=== PATIENT | female | born 1990 | race Caucasian/White ===

== ENCOUNTER 2017-07-27 01:38 | Inpatient (IN) | payer OTHER, BC ==
[2017-07-27] MEDS ORDERED: Carboprost Tromethamine 250 MCG/1 ML Amp IM PRN (02:23)
[2017-07-27] MEDS ORDERED: Misoprostol 400 MCG (4 X 100 MCG TAB) RECTAL PRN (02:23)
[2017-07-27] MEDS ORDERED: Ondansetron 4 MG/2 ML SDV IV PRN (02:23)
[2017-07-27] MEDS ORDERED: Methylergonovine 0.2 MG/1 ML Amp IM PRN (02:23)
[2017-07-27] MEDS ORDERED: Lactated Ringers 500 ML IV ONE (02:23)
[2017-07-27] MEDS ORDERED: Sodium Chloride 0.9% 10 ML Syringe FLUSH PRN (02:23)
[2017-07-27] MEDS ORDERED: Lidocaine 1% 30 ML SDV INJECT PRN (02:23)
[2017-07-27] MEDS ORDERED: Oxytocin/Normal Saline 30 UNIT/500 ML BAG IV SCH (02:45)
[2017-07-27] MEDS: Lactated Ringers 1,000 ML IV SCH ×2 (03:58→07:15)
[2017-07-27] MEDS ORDERED: fentaNYL 100 MCG/2 ML SDV IVPUSH SCH (04:48)
[2017-07-27] MEDS: fentaNYL 100 MCG/2 ML SDV IVPUSH PRN ×2 (05:10→06:26)
[2017-07-27] MEDS ORDERED: Benzocaine/Menthol 20%-0.5% Spray 56 GM Canister TOP PRN (07:50)
[2017-07-27] MEDS ORDERED: Simethicone 80 MG Tab.Chew PO PRN (07:50)
[2017-07-27] MEDS ORDERED: Oxytocin 10 Units/1 ML SDV IM PRN (07:50)
[2017-07-27] MEDS ORDERED: Zolpidem 5 MG Tab PO PRN (07:50)
--- NOTE | 2017-07-27 08:03 | PCM.DEL ---
Vacuum Extractor Progress Note - Alternative Labor Strategies Considered Alternative Labor Strategies Considered:: Reports: Yes Strategies Considered:: Reports: Contraction Intensity Adequate, Position Changes Used to Facilitate Rotation & Descent, Empty Bladder, Rest Indications Considered:: Reports: Yes Indications:: Reports: Suspicion of Immediate or Potential Compromise Time Out:: Reports: Yes - Patient Prepared Patient Prepared:: Reports: Yes Informed Consent:: Reports: Yes, Verbal Risks: Reports: Yes Risks Include:: Reports: Laceration, Shoulder Dystocia, Maternal Injury Anesthesia/Analgesia Adequate:: Reports: Yes - Probability of Success High Probability of Success:: Reports: Yes Weight Estimated:: Reports: AGA, SGA Patient Diabetic:: Reports: No Pelvis Adequate:: Reports: Yes Asynclitic:: Reports: No Station:: vtx seen splitting the labia - Application Time Maximum Application Time & Number of Pop-Offs Predetermined:: Reports: Yes Maximum Pressure Maintained in Green Zone (cm Hg):: 0 (see nurses notes) Total Application Time (min): *max=20min: 0 (see nurses notes) Number of Times Cup Disengaged:: 0 Type of Vacuum Used:: Reports: Low profile Vacuum Extraction: Successful Comments:: see dictated delivery note for details. - Exit Strategy Exit strategy available:: Reports: Yes and resuscitation teams readily available:: Reports: Yes - Patient Data Vitals - Most Recent: Last Vital Signs Temp 96.9 F 07/27/17 01:46 Pulse 63 07/27/17 01:48 Resp 16 07/27/17 01:48 BP 130/82 07/27/17 01:48 Pulse Ox 97 07/27/17 01:48 Weight - Most Recent: 80.739 kg Lab Results Last 24 Hours: Laboratory Results - last 24 hr 07/27/17 Range/Units 02:12 WBC 9.6 (5.0-10.0) 10^3/uL RBC 3.81 L (4.2-5.4) 10^6/uL Hgb 11.0 L (12.0-16.0) g/dL Hct 34.6 L (37.0-47.0) % MCV 90.8 (80-100) fL MCH 28.9 (27.0-34.0) pg MCHC 31.8 L (33.0-35.0) g/dL Plt Count 223 (150-450) 10^3/uL Med Orders - Current: Current Medications Acetaminophen (Tylenol) 650 mg PO Q4H PRN PRN Reason: Pain (Mild 1-3) and fever Benzocaine/Menthol (Dermoplast Pain Relief Celina) 0 gm TOP Q4H PRN PRN Reason: Perineal comfort measures Carboprost Tromethamine (Hemabate Ds) 250 mcg IM ASDIRECTED PRN PRN Reason: HEMORRHAGE Docusate Sodium (Colace) 100 mg PO BID PRN PRN Reason: Constipation Fentanyl (Sublimaze) 50 mcg IVPUSH Q1H PRN PRN Reason: Pain Last Admin: 07/27/17 06:26 Dose: 50 mcg Lactated Ringer's (Ringers, Lactated) 1,000 mls @ 125 mls/hr IV ASDIRECTED SUZIE Last Admin: 07/27/17 07:15 Dose: 125 mls/hr Oxytocin/Sodium Chloride (Pitocin In Ns 30 Unit/500 Ml) 30 unit in 500 mls @ 2 mls/hr IV TITRATE SUZIE; 2 MUNITS/MIN PRN Reason: Protocol Last Titration: 07/27/17 07:51 Dose: 250 munits/min, 250 mls/hr Ibuprofen (Motrin) 800 mg PO Q8H PRN PRN Reason: Mild Pain or Fever Lidocaine HCl (Xylocaine-Mpf 1%) 10 ml INJECT ASDIRECTED PRN PRN Reason: Perineal Repair Last Admin: 07/27/17 07:35 Dose: 10 ml Methylergonovine Maleate (Methergine) 0.2 mg IM ASDIRECTED PRN PRN Reason: Hemorrhage Misoprostol (Cytotec) 800 mcg RECTAL ASDIRECTED PRN PRN Reason: Hemorrhage Ondansetron HCl (Zofran) 4 mg IV Q4H PRN PRN Reason: Nausea/Vomiting Last Admin: 07/27/17 07:14 Dose: 4 mg Oxytocin (Pitocin) 10 unit IM ONETIME PRN PRN Reason: Bleeding Prenat Multivit/[place]/Iron/Folic Ac ( Plus Iron) 1 each PO DAILY SUZIE Simethicone (Simethicone) 80 mg PO Q4H PRN PRN Reason: Gas Sodium Chloride (Saline Flush) 10 ml FLUSH ASDIRECTED PRN PRN Reason: Keep Vein Open Zolpidem Tartrate (Ambien) 5 mg PO BEDTIME PRN PRN Reason: Insomnia Discontinued Medications Fentanyl (Sublimaze) 50 mcg IVPUSH Q1H SUZIE Lactated Ringer's (Ringers, Lactated) 500 mls @ 500 mls/hr IV .BOLUS ONE Stop: 07/27/17 03:22 Sodium Bicarbonate (Sodium Bicarbonate 4.2%) Confirm Administered Dose 5 meq .ROUTE .STK-MED ONE Stop: 07/27/17 07:17 Sufentanil Citrate (Sufenta) Confirm Administered Dose 50 mcg .ROUTE .STK-MED ONE Stop: 07/27/17 07:17 - Problem List Review Problem List Initiated/Reviewed/Updated: No - My Orders Last 24 Hours: My Active Orders 07/27/17 02:23 Patient Status [ADT] Routine Communication Order [RC] ASDIRECTED Notify Provider Vital Signs OB [RC] ASDIRECTED Notify Provider [RC] PRN Up ad Janice [RC] ASDIRECTED Vital Signs [RC] PER UNIT ROUTINE Acetaminophen [Tylenol] 650 mg PO Q4H PRN Carboprost Tromethamine [Hemabate DS] 250 mcg IM ASDIRECTED PRN Lidocaine 1% [Xylocaine-MPF 1%] 10 ml INJECT ASDIRECTED PRN Methylergonovine [Methergine] 0.2 mg IM ASDIRECTED PRN Misoprostol [Cytotec] 800 mcg RECTAL ASDIRECTED PRN Ondansetron [Zofran] 4 mg IV Q4H PRN Sodium Chloride 0.9% [Saline Flush] 10 ml FLUSH ASDIRECTED PRN Saline Lock Insert [OM.PC] Routine Resuscitation Status Routine 07/27/17 02:29 Pump Management, Intrathecal [RC] ASDIRECTED 07/27/17 02:30 Lactated Ringers [Ringers, Lactated] 1,000 ml IV ASDIRECTED 07/27/17 02:45 Oxytocin/Normal Saline [Pitocin in NS 30 UNIT/500 ML] 30 unit in 500 ml IV TITRATE 07/27/17 05:00 fentaNYL [Sublimaze] 50 mcg IVPUSH Q1H PRN 07/27/17 07:50 Consult to Supervisor [employer] [CONS] Routine Benzocaine/Menthol [Dermoplast Pain Relief Celina] See Dose Instructions TOP Q4H PRN Docusate Sodium [Colace] 100 mg PO BID PRN Ibuprofen [Motrin] 800 mg PO Q8H PRN Oxytocin [Pitocin] 10 unit IM ONETIME PRN Simethicone 80 mg PO Q4H PRN Zolpidem [Ambien] 5 mg PO BEDTIME PRN 07/27/17 07:51 Assess Lochia [WOMSER] Per Unit Routine Assess Uterine Involution [WOMSER] Per Unit Routine Breast Pump [WOMSER] Per Unit Routine Ice Therapy [OM.PC] Per Unit Routine Perineal Care [OM.PC] Per Unit Routine Saline Lock Insert [OM.PC] Urgent Sitz Bath [OM.PC] Per Unit Routine 07/27/17 07:53 Patient Status Manage Transfer [TRANSFER] Routine 07/27/17 09:00 Vit with Ca/FA/Iron [ Plus Iron] 1 each PO DAILY 07/27/17 Breakfast Regular Diet [DIET] 07/27/17 Lunch Clear Liquid Diet [DIET] 07/28/17 06:00 CBC W/O DIFF,HEMOGRAM [HEME] Routine
[2017-07-27] MEDS: Ibuprofen 800 MG Tab PO PRN ×2 (08:18→17:13)
[2017-07-27] MEDS: Docusate Sodium 100 MG Cap PO PRN ×2 (08:18→21:50)
[2017-07-27] MEDS: Prenatal Multivitamin with Calcium/Folic Acid/Iron Tab PO SCH (09:58)
[2017-07-27] MEDS: Acetaminophen 325 MG Tab PO PRN ×2 (13:52→21:50)
[2017-07-28] MEDS: Ibuprofen 800 MG Tab PO PRN ×3 (02:54→17:26)
[2017-07-28] MEDS: Docusate Sodium 100 MG Cap PO PRN ×2 (10:09→19:57)
[2017-07-28] MEDS: Acetaminophen 325 MG Tab PO PRN ×3 (10:09→19:57)
[2017-07-28] MEDS: Prenatal Multivitamin with Calcium/Folic Acid/Iron Tab PO SCH (12:01)
[2017-07-28] MEDS: Acetaminophen/oxyCODONE 325-5 MG Tab PO PRN (22:15)
[2017-07-29] MEDS: Ibuprofen 800 MG Tab PO PRN (03:57)
[2017-07-29] MEDS: Acetaminophen/oxyCODONE 325-5 MG Tab PO PRN (08:25)
[2017-07-29] MEDS: Docusate Sodium 100 MG Cap PO PRN (08:26)
--- NOTE | 2017-07-29 08:59 | HP ---
PATIENT IDENTIFICATION: Monet Durant is a 27-year-old G1, P0, intrauterine at 37-5/7 weeks by 6-2/7 weeks' ultrasound, who presents with vaginal leaking. HISTORY OF PRESENT ILLNESS: The patient states vaginal leaking started approximately 1:00 a.m. on date of admission, occurred after she got up to use the bathroom, and then thereafter noticed clear vaginal fluid was leaking, severe enough that it was soaking through clothing, and making puddles on the floor. Associated with this has been some mild contractions felt in the lower abdomen, coming on every 2 to 3 minutes. Sometimes, they are felt in the upper abdomen as well. With this in context, her course has been remarkable for being GBS negative, being Rh negative, getting RhoGAM as appropriate, and history of idiopathic intracranial hypertension, and she is okay to receive spinal anesthesia. OBSTETRICAL HISTORY: Primip. Records were called for, reviewed as below, and supplemented by the patient's history. ANTEPARTUM LABS: ABO blood type A negative. Negative antibody. Rubella immune. RPR nonreactive. Negative hepatitis B surface antigen. Negative hep C, HIV, GC, and Chlamydia. Wet prep within normal limits. One-hour GTT was 107. Hemoglobin being 14.1 and platelets at 280. GBS was negative in the third trimester. ALLERGIES: Seasonal allergies. PAST MEDICAL/PAST SURGICAL HISTORY: Remarkable for migraine headaches, urinary frequency, anxiety, depression, microscopic hematuria, genital warts, obesity, and had a cystoscopy in August 2015. FAMILY HISTORY: ADHD in a brother. Diabetes in maternal grandmother as well as glaucoma in this grandmother. High blood pressure in father who also had diverticulitis and Forestier disease. Mother has obesity. Brother has epilepsy, and mother has thyroid disease and sleep apnea as well. Negative family history of cancer, heart disease, breast cancer, other issues, bleeding problems, anesthesia problems. SOCIAL HISTORY: since October 2015. 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 Raising a 3- year-old stepson and 8-year-old stepdaughter, who are active. She denies any alcohol, tobacco, or drug use. Sexually active with a male partner, who presents with her today. REVIEW OF SYSTEMS: Otherwise reviewed and felt to be noncontributory. OBJECTIVE: Vital Signs: Blood pressure 130/82, heart rate 63. The patient feels afebrile. Appearance: Female, appears stated age, acting appropriate for age, nontoxic appearance. HEENT: Head is atraumatic. EOMs intact. PERRLA. No scleral icterus. No obvious otorrhea or rhinorrhea. Mucous membranes are moist. Neck: No obvious tenderness. Lungs: Clear to auscultation bilaterally. No increased work of breathing. Heart: S1, S2. Regular rate and rhythm. Abdomen: Gravid, Geo's indeterminate, nontender, nondistended. Bowel sounds positive. No organomegaly, pulsatile masses, or obvious hernias. No rebound, rigidity, or guarding. Monitors applied. : Per nurse reveals massive amount of clear vaginal fluid that is leaking with a cervical exam revealing her to be 3+ cm, 60% effaced, 0 to -1 station, vertex suspected. Extremities: No peripheral edema. Deep tendon reflexes 2 to 3/4 bilaterally and symmetric in lower extremities. Psychiatric: Mood and affect are congruent. Judgment and insight are intact. Skin: Without any cyanosis, clubbing, or jaundice. LABS: CBC pending. NST is found to be reactive and reassuring. Tocometer reveals contractions every 2 to 4 minutes. ASSESSMENT/PLAN: 1. Intrauterine at 37 and 5/7 weeks by 6-2/7 weeks' ultrasound. 2. Spontaneous rupture of membranes. 3. Group B Streptococcus negative. 4. Rh negative. Received RhoGAM earlier appropriately. 5. History of idiopathic intracranial hypertension with documentation stating physician did not see any contraindication to spinal. 6. 1, para 0. PLAN: The patient will be admitted. Follow clinically and closely. She wishes to get in the tub. We will evaluate her thereafter. If she does not have adequate contractions and cervical change, we will consider Pitocin augmentation and follow clinically and closely. The patient understands and agrees with the above treatment and plan. [facility] /[id number]
--- NOTE | 2017-07-29 10:02 | PN ---
DATE: 07/28/2017 Day #1 SUBJECTIVE: The patient is tolerating p.o., ambulating, urinating, passing flatus. PHYSICAL EXAMINATION: Vital Signs: Last set of vitals updated and listed in the chart. Temperature 97.8, heart rate 76, blood pressure 114/72, respiratory rate 16. Lungs: Clear to auscultation. Heart: S1 and S2. Regular rate and rhythm. Pelvic: Firm uterus -1 below umbilicus. Extremities: Trace pedal edema. No calf pain. LABORATORY DATA: Labs reveal a white cell count of 10.5, hemoglobin 10.2, platelets 205. ASSESSMENT: 1. day #1, status post vacuum assisted vaginal delivery with first- degree perineal laceration-repaired. We will continue to follow clinically and closely. 2. Rh negative status. Cord blood was done. Baby's cord blood type was negative as well. Will need RhoGAM. PLAN: Follow closely. Possible discharge tomorrow. The patient understands and agrees with the above treatment plan. [facility] /[id number]
--- NOTE | 2017-07-29 11:05 | DEL ---
DATE: 07/27/2017 PREOPERATIVE DIAGNOSES: 1. Intrauterine at 37 and 5/7 weeks by 6 and 2/7 week ultrasound. 2. Premature rupture membranes approximately 1 a.m., on date of admission, requiring Pitocin augmentation. 3. Group B Streptococcus negative. 4. Rh negative. 5. History of idiopathic intracranial hypertension. 6. Episode of bradycardia/decelerations in the second stage of labor. 7. G1, P0. POSTOPERATIVE DIAGNOSES: 1. Intrauterine at 37 and 5/7 weeks by 6 and 2/7 week ultrasound- delivered. 2. Premature rupture membranes approximately 1 a.m., on date of admission, requiring Pitocin augmentation. 3. Group B Streptococcus negative. 4. Rh negative. 5. History of idiopathic intracranial hypertension. 6. Episode of bradycardia/decelerations in the second stage of labor. 7. G1, P0. 8. First-degree perineal laceration, repaired. 9. Bilateral periurethral abrasions, right worse than left, nonbleeding, non- repaired after discussion with the patient. PROCEDURE PERFORMED: NST, Pitocin augmentation, subsequently vacuum-assisted vaginal delivery with first-degree perineal laceration,repaired. ANESTHESIA/ANALGESIA: The patient did receive 2 doses of fentanyl during her first stage of labor. ESTIMATED BLOOD LOSS: 200 mL. FINDINGS: Female, scores 8 and 9, weighing 5 pounds 12 ounces (2660 g). SUMMARY OF EVENTS: The patient is a 27-year-old, G1, P0, intrauterine at 37 and 5/7 weeks' by 6 and 2/7 weeks' ultrasound admitted with vaginal leaking. Subsequently, diagnosed with premature rupture membranes requiring Pitocin augmentation. She underwent this and then had fentanyl 2 doses in the first stage of labor. She rapidly progressed from approximately 4 cm to complete within less than 2 hours. I was called to the room, donned sterile gown and gloves. The patient started pushing with her contractions. There was noted to be some bradycardia with decelerations during and after the contractions that persisted or worsened. Oxygen was started as well as IV fluids and these persisted. Subsequently, discussion ensued in regard to Kiwi vacuum-assisted vaginal delivery. I discussed with her and her male partner risks, benefits, alternatives, complications of this and they understood and agreed and wished to proceed. Verbal consent was obtained. Prior to using the vacuum, rubber tip catheter was introduced into the bladder under sterile conditions and clear urine was drained and was subsequently removed. Next episode of pushing, vertex was seen splitting the labia, low-profile kiwi vacuum was then applied and with the next 2 contractions with patient pushing, kiwi vacuum was pumped up to the green while patient was pushing and with gentle pulling pressure, vertex was delivered in PAUL presentation. Vacuum was disengaged and removed. Nuchal cord x1 was reduced bluntly with delivery and then subsequently anterior and posterior shoulder then delivered with minimal difficulty with right hand by left cheek. Rest of the delivered without difficulty. Mouth and nares were suctioned. Cord was doubly clamped and cut, and was brought over to team. Then, approximately 10 mL cord blood was obtained for labs. Placenta then delivered with gentle cord traction and fundal massage. Perineum, vagina, and perirectal areas were examined and noted to have a first-degree perineal laceration that was anesthetized and repaired in the usual fashion using 3-0 Vicryl, as well as bilateral periurethral abrasions, right worse than left, nonbleeding, non-repaired after discussion with the patient. Mother and infant are currently stable at the time of my dictation. [facility] /[id number]
--- NOTE | 2017-07-29 11:20 | OBOUT ---
DATE: 07/27/2017 DATE AND TIME OF NST: Date: 07/27/2017. Time: 2:19 to 2:36. REASON FOR NST: 1. Intrauterine at 37 and 5/7 weeks by 6 and 2/7-week ultrasound. 2. Spontaneous rupture of membranes. 3. GBS negative. 4. Rh negative. 5. History of idiopathic intracranial hypertension. 6. G1, P0. NST INTERPRETATION: During this time period, heart tone baseline is approximately 130, and there are at least two 15 x 15 beat per minute accelerations, making this strip reactive. It is also noted to be reassuring. Tocometer reveals potential of 5 contractions, which the patient minimally feels. ASSESSMENT: 1. Nonstress test - reactive and reassuring. 2. Tocometer with contractions. PLAN: Please see admit history and physical for further details. [facility] /[id number]
[2017-07-29] MEDS: Prenatal Multivitamin with Calcium/Folic Acid/Iron Tab PO SCH (12:34)
--- NOTE | 2017-07-30 08:41 | DISCH ---
ADMIT DIAGNOSES: 1. Intrauterine at 37 and 5/7 weeks by 6 and 2/7 week ultrasound. 2. Premature rupture membranes requiring Pitocin augmentation. 3. Group B strep negative. 4. Rh negative. 5. History of idiopathic intracranial hypertension. 6. G1, P0. DISCHARGE DIAGNOSES: 1. Intrauterine at 37 and 5/7 weeks by 6 and 2/7 week ultrasound, delivered. 2. Premature rupture membranes requiring Pitocin augmentation. 3. Group B strep negative. 4. Rh negative. 5. History of idiopathic intracranial hypertension. 6. G1, P0. 7. bradycardia, requiring vacuum-assisted vaginal delivery. 8. First-degree perineal laceration, repaired. PROCEDURE PERFORMED: NST, Pitocin augmentation, and vacuum-assisted vaginal delivery on date of admission with first degree perineal laceration, repaired. HISTORY OF PRESENT ILLNESS: Please see H and P. SUMMARY OF HOSPITAL COURSE: The patient was admitted on the above date with the above diagnoses, underwent the above procedures, then went on to have a vacuum- assisted vaginal delivery yielding a female, scores 8 and 9, weighing 5 pounds 12 ounce (2660 g) with nuchal cord x1 reduced bluntly with delivery in a PAUL presentation with right hand by left cheek. adames, please see progress notes. day #2, date of discharge, the patient was complaining of right shoulder pain that suddenly came on the evening prior to discharge. She was awaiting physical therapy evaluation and management. [place] she could go home with this with exercises, and we will follow up later this week in regard to this. DISCHARGE EVALUATION: Vital Signs: Temperature 97.8, heart rate 70, blood pressure 101/54, respiratory rate 16. Lungs: Clear to auscultation bilaterally. Heart: S1 and S2. Regular rate and rhythm. Abdomen: Firm uterus to approximately umbilicus. Extremities: Trace pedal edema. No calf pain. Musculoskeletal: Right shoulder, there is some pain with external rotation of the shoulder and pain in the trapezius region, as well as lateral shoulder area. There is no swelling of her hands, wrist, and her upper extremities are distally neurovascularly intact. Upon discharge, the patient was tolerating p.o., ambulating, urinating, passing flatus, and requesting discharge. LABORATORY DATA: Labs on 07/28, revealed white cell count 10.5, hemoglobin 10.2, platelets 205. CONDITION ON DISCHARGE COMPARED TO CONDITION ON ADMISSION: Improved. DISCHARGE INSTRUCTIONS: 1. Diet: As tolerated. 2. Activity: No lifting more than 20 pounds. No sit-ups, straining, and pelvic rest for next 6 weeks with immediate return to fertility discussed with the patient. 3. Reasons to return or go to the emergency room were discussed with the patient in detail including, but not limited to, temperature greater than 100.4, foul-smelling discharge, red, hot tender breasts, or increased vaginal bleeding. DISCHARGE MEDICATIONS: 1. Lthn-jmo-[id number] ibuprofen for pain. 2. Percocet 5/325, one to two q.6 hours p.r.n., #30. No refills. Discussed the use of this medication, adverse and wanted effects, as well as precautions with driving. 3. Iron sulfate 325 b.i.d. x6 weeks, dispense q.s., no refills. FOLLOWUP: Followup on 07/31/2017, with her baby, and for recheck of her right shoulder. The patient understands and agrees with the above treatment plan. I did discuss with her the importance of followup and ramifications of not doing so, as well as reasons to return or go to the emergency room in regard to her infant. [facility] /[id number]
== END 2017-07-29 12:10 | disposition home or self-care (01) | DRG 775 ==
LOC: DL.OBCHECK 01:38 → DL.OB 02:01 → OBSVTOIN 07:32
PROVIDERS: ADMIT Family Medicine; ATTEND Family Medicine
PROC: 10D07Z6 Extraction of Products of Conception, Vacuum, Via Natural or Artificial Opening (ICD-10-PCS; principal; 2017-07-27)
PROC: 0HQ9XZZ Repair Perineum Skin, External Approach (ICD-10-PCS; 2017-07-27)
DX: O42.02 Full-term premature rupture of membranes, onset of labor within 24 hours of rupture (principal); O70.0 First degree perineal laceration during delivery; Z3A.37 37 weeks gestation of pregnancy; Z37.0 Single live birth; O76 Abnormality in fetal heart rate and rhythm complicating labor and delivery; O69.81X0 Labor and delivery complicated by cord around neck, without compression, not applicable or unspecified; O71.82 Other specified trauma to perineum and vulva; O99.214 Obesity complicating childbirth; E66.9 Obesity, unspecified; Z68.34 Body mass index [BMI] 34.0-34.9, adult
CPT/HCPCS: 36415; 59300; 59409; 83986; 85027; 97161-GP; A9270-GY; J2405; J2590; J3010; J7120

== ENCOUNTER 2019-08-03 15:55 | Emergency (ER) | payer OTHER, BC ==
--- NOTE | 2019-08-03 16:12 | EDM.PDOC ---
ED HPI GENERAL MEDICAL PROBLEM - General Chief Complaint: General Stated Complaint: POTASEUM Time Seen by Provider: 08/03/19 16:11 Source of Information: Reports: Patient, Old Records, RN, RN Notes Reviewed History Limitations: Reports: No Limitations - History of Present Illness INITIAL COMMENTS - FREE TEXT/NARRATIVE: Pt states she was sent here by her clinic doctor for an IV Potassium infusion. Gastric by pass in May, since then K+ levels have been very low. She has been getting K+ infusions but has not needed one since last week. She was supposed to start oral K+, has not started that but her is picking it up today. Today in clinic level was 2.7. Pt denies any new symptoms. Onset: Today Duration: Recurring Location: Reports: Generalized Quality: Reports: Other (Denies pain.) Severity: Severe Improves with: Reports: None Worsens with: Reports: None Associated Symptoms: Reports: No Other Symptoms - Related Data Allergies Allergy/AdvReac Type Severity Reaction Status Date / Time NSAIDS (Non-Steroidal Allergy Other Verified 08/03/19 16:04 Anti-Inflamma Home Meds: Home Meds Ondansetron HCl [Zofran] 1 tab PO ASDIRECTED PRN 07/10/17 [History] Sertraline [Zoloft] 1 tab PO DAILY 07/10/17 [History] Esomeprazole Magnesium [Nexium 24Hr] 20 mg PO DAILY 07/27/17 [History] Enoxaparin [Lovenox] 40 mg INJECT DAILY 07/21/19 [History] Past Medical History HEENT History: Reports: None, Other (See Below) Other HEENT History: ideopathic intracranial hypertension. 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 Bilateral flank pain. Nocturia. 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: , Other (See Below) (genital warts) Musculoskeletal History: Reports: None Neurological History: Reports: Migraines Psychiatric History: Reports: Anxiety, Depression Endocrine/Metabolic History: Reports: Obesity/BMI 30+ Hematologic History: Reports: B12 Deficiency, Folic Acid Immunologic History: Reports: None Oncologic (Cancer) History: Reports: None Dermatologic History: Reports: None - Infectious Disease History Infectious Disease History: Reports: None - Past Surgical History Head Surgeries/Procedures: Reports: None HEENT Surgical History: Reports: None Cardiovascular Surgical History: Reports: None GI Surgical History: Reports: Bariatric Procedure, Other (See Below) Other GI Surgeries/Procedures: hiatal hernia repair Female Surgical History: Reports: None Musculoskeletal Surgical History: Reports: None Social & Family History - Family History Family Medical History: Noncontributory - Caffeine Use Caffeine Use: Reports: Coffee, Soda - Living Situation & Occupation Living situation: Reports: , with Family ED ROS GENERAL - Review of Systems Review Of Systems: ROS reveals no pertinent complaints other than HPI. ED EXAM, GENERAL - Physical Exam Exam: See Below Exam Limited By: No Limitations General Appearance: Alert, No Apparent Distress, Obese Eye Exam: Bilateral Eye: Normal Inspection Nose: Normal Inspection Throat/Mouth: Normal Inspection, Normal Voice, No Airway Compromise Head: Atraumatic, Normocephalic Respiratory/Chest: No Respiratory Distress, Lungs Clear, Normal Breath Sounds, No Accessory Muscle Use, Chest Non-Tender Cardiovascular: Regular Rate, Rhythm Neurological: Alert, Oriented, CN II-XII Intact, Normal Cognition, Normal Gait, No Motor/Sensory Deficits Psychiatric: Normal Affect, Normal Mood Skin Exam: Warm, Dry, Intact, Normal Color, No Rash Course - Vital Signs Last Recorded V/S: Last Vital Signs Temp 97.1 F 08/03/19 16:05 Pulse 85 08/03/19 16:05 Resp 16 08/03/19 16:05 BP 118/77 08/03/19 16:05 Pulse Ox 100 08/03/19 16:05 - Orders/Labs/Meds Orders: Active Orders 24 hr Category Date Time Status Peripheral IV Care [RC] . DIRECTED Care 08/03/19 16:31 Active POTASSIUM,K [CHEM] Stat Lab 08/03/19 16:30 Ordered Sodium Chloride 0.9% [Saline Flush] Med 08/03/19 16:31 Active 10 ml FLUSH ASDIRECTED PRN Sodium Chloride 0.9% with KCl [Normal Saline with 40 Med 08/03/19 16:45 Active mEq KCl] 1,000 ml IV ASDIRECTED Peripheral IV Insertion Adult [OM.PC] Stat Oth 08/03/19 16:31 Ordered Medication Orders Potassium Chloride/Sodium Chloride (Normal Saline With 40 Meq Kcl) 1,000 mls @ 250 mls/hr IV ASDIRECTED SUZIE Sodium Chloride (Saline Flush) 10 ml FLUSH ASDIRECTED PRN PRN Reason: Keep Vein Open Meds: Medications Generic Name Dose Route Start Last Admin Trade Name Freq PRN Reason Stop Dose Admin Potassium Chloride/Sodium Chloride 1,000 mls @ 250 mls/hr 08/03/19 16:45 Normal Saline With 40 Meq Kcl IV ASDIRECTED SUZIE Sodium Chloride 10 ml 08/03/19 16:31 Saline Flush FLUSH ASDIRECTED PRN Keep Vein Open - Re-Assessments/Exams Free Text/Narrative Re-Assessment/Exam: 08/03/19 16:40 Pt will be treated as extended stay ER for 4 hours for IV infusion of Potassium 40mEq then d/c'd home with instructions to begin oral Potassium solution as prescribed by her doctor and f/u in clinic tomorrow for a repeat lab draw for potassium level. Departure - Departure Time of Disposition: 21:00 Disposition: Home, Self-Care 01 Condition: Fair Clinical Impression: Hypokalemia, Postoperative malabsorption - Discharge Information *PRESCRIPTION DRUG MONITORING PROGRAM REVIEWED*: No *COPY OF PRESCRIPTION DRUG MONITORING REPORT IN PATIENT JAIRO: No Instructions: Hypokalemia Forms: ED Department Discharge Additional Instructions: Begin oral potassium solution as prescribed by your doctor. Follow up in clinic tomorrow for a repeat potassium lab draw. Contact your clinic provider to ensure a lab order has been made. - My Orders Last 24 Hours: My Active Orders 08/03/19 16:30 POTASSIUM,K [CHEM] Stat 08/03/19 16:31 Peripheral IV Care [RC] . DIRECTED Sodium Chloride 0.9% [Saline Flush] 10 ml FLUSH ASDIRECTED PRN Peripheral IV Insertion Adult [OM.PC] Stat 08/03/19 16:45 Sodium Chloride 0.9% with KCl [Normal Saline with 40 mEq KCl] 1,000 ml IV ASDIRECTED - Assessment/Plan Last 24 Hours: My Active Orders 08/03/19 16:30 POTASSIUM,K [CHEM] Stat 08/03/19 16:31 Peripheral IV Care [RC] . DIRECTED Sodium Chloride 0.9% [Saline Flush] 10 ml FLUSH ASDIRECTED PRN Peripheral IV Insertion Adult [OM.PC] Stat 08/03/19 16:45 Sodium Chloride 0.9% with KCl [Normal Saline with 40 mEq KCl] 1,000 ml IV ASDIRECTED
[2019-08-03] MEDS ORDERED: Sodium Chloride 0.9% 10 ML Syringe FLUSH PRN (16:31)
[2019-08-03] MEDS ORDERED: Sodium Chloride 0.9% with KCl 1,000 ML IV SCH (16:45)
== END 2019-08-03 21:00 | disposition home or self-care (01) ==
LOC: DL.ED 15:55
DX: E87.6 Hypokalemia (principal); K91.2 Postsurgical malabsorption, not elsewhere classified; K21.9 Gastro-esophageal reflux disease without esophagitis; F32.9 Major depressive disorder, single episode, unspecified; F41.9 Anxiety disorder, unspecified; E66.9 Obesity, unspecified; Y83.8 Other surgical procedures as the cause of abnormal reaction of the patient, or of later complication, without mention of misadventure at the time of the procedure; Z68.34 Body mass index [BMI] 34.0-34.9, adult; Z79.899 Other long term (current) drug therapy; Z88.6 Allergy status to analgesic agent; Z79.01 Long term (current) use of anticoagulants; Z98.84 Bariatric surgery status
CPT/HCPCS: 36415; 84132; 96365; 96366; 99284; J3480

== ENCOUNTER 2022-07-14 08:46 | Inpatient (IN) | payer BC | END 2022-07-17 11:00 | disposition home or self-care (01) | DRG 560 | LOC: DL.OBCHECK 08:46 → DL.ZCENSUS 23:50 → OBSVTOIN 07-15 15:36 | PROVIDERS: ATTEND Family Medicine | PROC: 10D07Z6 Extraction of Products of Conception, Vacuum, Via Natural or Artificial Opening (ICD-10-PCS; principal; 2022-07-15) | PROC: 0HQ9XZZ Repair Perineum Skin, External Approach (ICD-10-PCS; 2022-07-15) | PROC: 3E0R3BZ Introduction of Anesthetic Agent into Spinal Canal, Percutaneous Approach (ICD-10-PCS; 2022-07-15) | PROC: 00HU33Z Insertion of Infusion Device into Spinal Canal, Percutaneous Approach (ICD-10-PCS; 2022-07-15) | DX: O60.14X0 Preterm labor third trimester with preterm delivery third trimester, not applicable or unspecified (principal); Z3A.36 36 weeks gestation of pregnancy; Z37.0 Single live birth; O99.824 Streptococcus B carrier state complicating childbirth; Z86.16 Personal history of COVID-19; O76 Abnormality in fetal heart rate and rhythm complicating labor and delivery; O70.0 First degree perineal laceration during delivery ==